=== PATIENT | male | born 1990 | race Caucasian/White ===

== ENCOUNTER 2020-10-15 05:14 | Emergency (ER) | payer MEDICAID ==
[2020-10-15] MEDS ORDERED: Ibuprofen 600 MG Tab PO ONE (05:40)
--- NOTE | 2020-10-15 06:32 | CR ---
Indication: Right big toe pain Technique: Three views Comparison: None Findings: Bones: 1 millimeter ossifications at the lateral aspect base of the distal phalanx great toe. Differential diagnosis includes some dystrophic calcification or tiny chip type fracture fragments. Joint spaces: Unremarkable. Soft tissues: Unremarkable. Dictated by David Beltran MD @ 10/15/2020 6:30:[address] David Beltran @ Oct 15 2020 6:30AM
--- NOTE | 2020-10-15 06:48 | EDM.PDOC ---
ED HPI GENERAL MEDICAL PROBLEM - General Chief Complaint: Lower Extremity Injury/Pain Stated Complaint: BIG TOE ON RIGHT FOOT- POSSIBLY BROKEN Time Seen by Provider: 10/15/20 05:28 - History of Present Illness INITIAL COMMENTS - FREE TEXT/NARRATIVE: CHIEF COMPLAINT(S): Right big toe pain HISTORY OF PRESENT ILLNESS: This is a 30-year-old man without any significant past medical history who comes to the emergency department with a chief complaint of right big toe pain. The patient states that he was on a boating trip for [address] approximately 85 [address]. He states that during the trip his foot was leaned against the cooler while he was rowing in addition he kicked a rock with his right foot. He states that his big toe started to hurt and it is hard for him to move it. He states that he is able to walk on it however it does hurt. He denies any history of gout, numbness, tingling, or weakness. He denies any other injury. He denies any purulent drainage or rash. REVIEW OF SYSTEMS: Skin:Denies a rash MSK: Positive for right big toe pain Neurological: Denies numbness, tingling, weakness PAST MEDICAL HISTORY: As per history of present illness and as reviewed below otherwise noncontributory. SURGICAL HISTORY: As per history of present illness and as reviewed below otherwise noncontributory. SOCIAL HISTORY: As per history of present illness and as reviewed below otherwise noncontributory. FAMILY HISTORY: As per history of present illness and as reviewed below otherwise noncontributory. EXAMINATION OF ORGAN SYSTEMS/BODY AREAS: Constitutional: Blood pressure is 124/78, heart rate 66, respiratory rate 17 with an oxygen saturation of 97% on room air. Temperature 36.3 General: Overall well-appearing man who is in no acute distress Psychiatric: Appropriate mood and affect. Eyes: No scleral icterus or conjunctival erythema ENMT: Moist mucous membranes. No pharyngeal erythema Cardiovascular: Right lower extremity DP and PT pulses are intact. Capillary refill of the distal right lower extremity is less than 2 seconds. Musculoskeletal: The patient has mild redness to the distal tip of his right big toe without any warmth. There is no purulent drainage, evidence of paronychia or evidence of infection. The patient is able to extend the toe but there is limited flexion. This is likely due secondary to pain. There is no other deformity of the foot. Skin: No lesions or abrasions. Neurological: Alert, GCS 15 distal sensation is intact. MEDICAL DECISION MAKING AND COURSE IN THE ED WITH INTERPRETATION/REVIEW OF DIAGNOSTIC STUDIES: This is a 30-year-old man without any significant past medical history who comes to the emergency department with 5 days of right big toe pain after a possible injury who has evidence of some mild erythema to the distal tip of his right big toe without any large amount of swelling who is able to move his toe and bear weight. At this time we will obtain an x-ray to evaluate for any fracture or abnormality. This is atypical for gout however that is also on the differential. I do not believe any lab work is indicated. We will provide the patient with ibuprofen 600 mg by mouth given that his last dose was earlier last night. The radiological images were viewed by myself along with reading the report from the radiologist. Right foot x-ray reveals 1 mm ossifications at the lateral aspect base of the distal phalanx great toe. Differential includes dystrophic calcification or tiny chip type fractures. Otherwise no acute abnormality. I did discuss the results with the patient. I did encourage the patient to use a steel toe boot to immobilize the toe. I did encourage the patient to rest, ice, elevate and use ibuprofen for anti-inflammatory reasons. I discussed that this should improve with time however if he has continued pain he should return to the emergency department especially if there is increased redness and swelling. I did discuss that he could follow-up with podiatry also. He was amenable to discharge at this time and had no further questions. DISPOSITION: The patient was discharged home in stable condition. The patient will follow up with podiatry CONDITION: Fair PROCEDURES: None FINAL IMPRESSION(S)/DIAGNOSES: 1. Acute right distal great toe ossification versus tiny fracture fragments Lester Hawkins M.D. Right Toe-[place] Pain Score (Numeric/FACES): 8 - Related Data Allergies Allergy/AdvReac Type Severity Reaction Status Date / Time cephalexin [From Keflex] Allergy Mild Rash Verified 10/15/20 05:22 prednisone AdvReac Mild Rash Verified 10/15/20 05:23 Home Meds: Home Meds . [No Known Home Meds] 10/15/20 [History] Past Medical History - Past Health History Medical/Surgical History: Denies Medical/Surgical History - Infectious Disease History Infectious Disease History: Reports: None - Past Surgical History Head Surgeries/Procedures: Reports: None Musculoskeletal Surgical History: Reports: Other (See Below) Other Musculoskeletal Surgeries/Procedures:: elbow Social & Family History - Family History Family Medical History: No Pertinent Family History - Tobacco Use Tobacco Use Status *Q: Never Tobacco User - Caffeine Use Caffeine Use: Reports: Coffee - Recreational Drug Use Recreational Drug Use: No Review of Systems - Review of Systems Review Of Systems: See Below ED EXAM, GENERAL - Physical Exam Exam: See Below Course - Vital Signs Last Recorded V/S: Last Vital Signs Temp 36.1 C 10/15/20 05:43 Pulse 66 10/15/20 05:23 Resp 17 10/15/20 05:23 BP 124/78 10/15/20 05:23 Pulse Ox 97 10/15/20 05:23 - Orders/Labs/Meds Meds: Medications Discontinued Medications Generic Name Dose Route Start Last Admin Trade Name Freq PRN Reason Stop Dose Admin Ibuprofen 600 mg 10/15/20 05:40 10/15/20 05:43 Ibuprofen 600 Mg Tab PO 10/15/20 05:41 600 mg ONETIME ONE Administration Departure - Departure Time of Disposition: 06:42 Disposition: Home, Self-Care 01 Condition: Fair Clinical Impression: Fracture of 1st metatarsal, Osteophyte - Discharge Information *PRESCRIPTION DRUG MONITORING PROGRAM REVIEWED*: No *COPY OF PRESCRIPTION DRUG MONITORING REPORT IN PATIENT JACQUELINE: No Instructions: Arthritis, [id number], Metatarsal Fracture Referrals: PCP,None [Primary Care Provider] - Forms: ED Department Discharge Additional Instructions: You were evaluated today on an emergent basis. At this time your x-ray did show some small 1 mm tiny fractures of your big toe versus some small calcium collections. Either way if there is calcium collections or the small tiny fractures the treatment is the same. I do recommend that you use your still to boot to keep your toe immobilized. I would like you to use ibuprofen 400 to 600 mg every 6 hours for the next 7 days. I recommend that you eat with this as ibuprofen can cause ulcers. You may use famotidine 20 mg daily to help prevent ulcers given that you are going to be taking this every day. This can be purchased [id number] at any pharmacy or [employer]. In addition I would like you to rest when you are not at work, ice the affected area 20 minutes 4 times a day, and keep it elevated at the level of your heart. If you have any worsening pain, redness refill like it is not getting any better I want you to return to the emergency department to be reevaluated for an infection. Otherwise you can follow-up with podiatry. Dr. [facility] [phone] The patient is informed of any results of their evaluation and diagnostic workup and all questions are answered. They are given discharge instructions and return precautions. The patient is stable for discharge. The patient states they understand and agree with the plan and that they will return if their symptoms get worse or if they have any new concerns. The following information is given to patients seen in the emergency department who are being discharged to home. This information is to outline your options for follow-up care. We provide all patients seen in our emergency department with a follow-up referral. The need for follow-up, as well as the timing and circumstances, are variable depending upon the specifics of your emergency department visit. If you don't have a primary care physician on staff, we will provide you with a referral. We always advise you to contact your personal physician following an emergency department visit to inform them of the circumstance of the visit and for follow-up with them and/or the need for any referrals to a consulting specialist. The emergency department will also refer you to a specialist when appropriate. This referral assures that you have the opportunity for follow-up care with a specialist. All of these measure are taken in an effort to provide you with optimal care, which includes your follow-up. Under all circumstances we always encourage you to contact your private physician who remains a resource for coordinating your care. When calling for follow-up care, please make the office aware that this follow-up is from your recent emergency room visit. If for any reason you are refused follow-up, please contact the [facility] Emergency Department at and asked to speak to the emergency department charge nurse. Sepsis Event Note (ED) - Evaluation Sepsis Screening Result: No Definite Risk - Focused Exam Vital Signs: Vital Signs Temp Temp Pulse Resp BP Pulse Ox 10/15/20 05:43 36.1 C 10/15/20 05:23 36.3 C 66 17 124/78 97
== END 2020-10-15 06:53 | disposition home or self-care (01) ==
LOC: MW.ED 05:14
DX: S92.311A Displaced fracture of first metatarsal bone, right foot, initial encounter for closed fracture (principal); M25.774 Osteophyte, right foot; Z88.1 Allergy status to other antibiotic agents; Z88.8 Allergy status to other drugs, medicaments and biological substances; W22.8XXA Striking against or struck by other objects, initial encounter
CPT/HCPCS: 73630; 99283; A9270